=== PATIENT | female | born 1970 | race Caucasian/White ===

== ENCOUNTER 2020-12-25 15:43 | Emergency (ER) | payer SELFPAY ==
[2020-12-25 16:28] LABS: Appearance SLIGHTLY CLOUDY (CLEAR); Bilirubin NEGATIVE (NEGATIVE); Blood NEGATIVE Ery/ul (0-5); Epithelial Cells RARE /HPF (FEW); Glucose NEGATIVE (NEGATIVE); Ketones TRACE (NEGATIVE); Leukocyte Esterase NEGATIVE (NEGATIVE); Mucus SLIGHT /HPF (NEGATIVE); Nitrite NEGATIVE (NEGATIVE); Protein,Urine Dip NEGATIVE (Negative); RBC 0-2 /HPF (0-2); Specific Gravity 1.016 (1.005-1.025); Urobilinogen 2 mg/dL (0-1); WBC 0-2 /HPF (0-5)
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
[2020-12-25 16:58] VITALS: BP 186/102; PULSE 93; O2SAT 97
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
[2020-12-25] MEDS ORDERED: MOTRIN 600 MG PO ONE (17:13)
[2020-12-25] MEDS ORDERED: MOTRIN 600 MG ONE (17:16)
== END 2020-12-25 17:21 | disposition home or self-care (01) ==
LOC: ED 15:43
DX: S00.03XA Contusion of scalp, initial encounter (principal); M25.512 Pain in left shoulder; V89.2XXA Person injured in unspecified motor-vehicle accident, traffic, initial encounter; Z79.899 Other long term (current) drug therapy; E78.00 Pure hypercholesterolemia, unspecified
CPT/HCPCS: 70450; 71046; 72125; 73030; 81001; 99285; A9270-GY